=== PATIENT | male | born 1990 | race Two or more races ===

== ENCOUNTER 2024-07-18 20:26 | Emergency (ER) | payer BC, SELFPAY ==
[2024-07-18 20:31] VITALS: PULSE 86; RESP 20; O2SAT 97; BMI 35.9
[2024-07-18 20:43] VITALS: BP 145/77; PULSE 99; RESP 20; TEMP 36.9; O2SAT 98
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
[2024-07-18] MEDS: IBUPROFEN TAB 400 MG TABLET 800 MG PO (22:42)
[2024-07-18] MEDS: ACETAMINOPHEN w/COD 300-30 TABLET 2 TAB PO (22:42)
[2024-07-18 23:10] VITALS: BP 146/80; PULSE 90; RESP 18; TEMP 36.9; O2SAT 98
== END 2024-07-18 23:10 | disposition home or self-care (01) ==
PROVIDERS: Emergency Provider Emergency Medicine
DX: S52.501A Unspecified fracture of the lower end of right radius, initial encounter for closed fracture (principal); V43.52XA Car driver injured in collision with other type car in traffic accident, initial encounter; Y92.410 Unspecified street and highway as the place of occurrence of the external cause
CPT/HCPCS: 29126; 73090; 99283; A9270

== ENCOUNTER 2024-08-03 18:00 | Emergency (ER) | payer BC, SELFPAY ==
[2024-08-03 18:39] VITALS: BP 128/79; PULSE 106; RESP 18; TEMP 36.8; O2SAT 96; BMI 37.3
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
--- NOTE | 2024-08-03 19:00 | PC.NURSE ---
no answer in lobby when called for room in ed
--- NOTE | 2024-08-03 19:25 | PC.NURSE ---
CALLED 3 TIMES , NO ANSWER AT ER LOBBY OR OUTSIDE ER.
--- NOTE | 2024-08-03 19:25 | PC.NURSE ---
no answer in lobby when called for room in ed
== END 2024-08-03 19:27 | disposition left against medical advice (07) ==
LOC: SERX 19:28
PROVIDERS: Emergency Provider Emergency Medicine
DX: S62.101A Fracture of unspecified carpal bone, right wrist, initial encounter for closed fracture (principal); X58.XXXA Exposure to other specified factors, initial encounter; Z53.29 Procedure and treatment not carried out because of patient's decision for other reasons
CPT/HCPCS: 99281

== ENCOUNTER 2024-08-04 08:36 | Day surgery (SDC) | payer BC, SELFPAY ==
[2024-08-04] VITALS (8 sets, daily range): BP systolic 124–149; BP diastolic 73–82; PULSE 76–103; RESP 12–18; TEMP 36.3–37; O2SAT 94–98; BMI 36.9
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
[2024-08-04 09:12] LABS: Prothrombin Time 11.4 Seconds (9.0-12.2)
[2024-08-04 09:16] LABS: Alanine Aminotransferase 18 U/L (10-49); Albumin, Serum 4.6 gm/dL (3.5-5.0); Albumin/Globulin Ratio 1.6 (1.2-2.2); Alkaline Phosphatase 95 U/L (46-116); Anion Gap 7 (7-16); Aspartate Amino Transferase 13 U/L (0-34); BUN/Creatinine Ratio 16 Ratio (12-20); Bilirubin,Total 0.7 mg/dL (0.3-1.2); Blood Urea Nitrogen 13 mg/dL (9-23); Calcium 10.6 mg/dL (8.3-10.6); Calcium (Corrected) 10.6 mg/dL (8.5-10.1); Carbon Dioxide 26.9 mMol/L (20.0-31.0); Chloride 108 mMol/L (98-107); Creatinine (Component) 0.8 mg/dL (0.6-1.3); Estimated Creatinine Clearance 174.9 mL/min (>60); Globulin 2.9 gm/dL (2.3-3.5); Glucose 100 mg/dL (74-106); Osmolality,Calculated 283 (275-295); Potassium 4.4 mMol/L (3.4-5.1); Sodium 142 mMol/L (136-145); Total Protein 7.5 gm/dL (5.7-8.2); eGFR > 60 See Note
[2024-08-04 09:20] LABS: Basophils # (Auto) 0.1 Thou/mm3 (0.0-0.2); Basophils % (Auto) 1 % (0-2.5); Eosinophils # (Auto) 0.2 Thou/mm3 (0.0-0.5); Eosinophils % (Auto) 1 % (0-10); Hematocrit 39.9 % (41.0-53.0); Hemoglobin 13.5 g/dL (13.5-16.0); Immature Granulocytes % (Auto) 0 % (0-0); Immature Granulocytes Auto 0.05 Thou/mm3 (0.00-0.00); Lymphocytes # (Auto) 3.2 Thou/mm3 (1.0-4.8); Lymphocytes % (Auto) 27 % (10-50); Mean Corpuscular HGB Conc 33.8 g/dl (31.0-37.0); Mean Corpuscular Volume 92 fL (80-100); Monocytes # (Auto) 0.9 Thou/mm3 (0.0-0.8); Monocytes % (Auto) 7 % (0-12); Neutrophils # (Auto) 7.5 Thou/mm3 (1.8-7.7); Neutrophils % (Auto) 63 % (37-80); Nucleated Red Blood Cell % 0 /100 WBC (0); Platelet Count 320 Thou/mm3 (140-440); RDW Standard Deviation 41.2 fL (35.1-43.9); Red Blood Count 4.36 Miln/mm3 (4.50-5.90); White Blood Count 11.9 Thou/mm3 (3.8-10.6)
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
--- NOTE | 2024-08-04 17:06 | PC.NURSE ---
taken to or at this time.
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
--- NOTE | 2024-08-04 18:48 | SUR.PHASEI ---
pt received to [facility]. awake, alert and oriented. vss. breathing even and unlabored. dressing to right hand cdi. report from nurse doty and dr allen.
--- NOTE | 2024-08-04 19:38 | PD.ANESPROG ---
Documentation for date of: 08/04/24 ANESTHESIA NOTE: Patient had GETA and R supraclavicular nerve block for R radius ORIF earlier today. He did well intra-op and currently in PACU doing well, awake, calm, NAD, post op pain controlled. Stevo Mora MD Anesthesia Progress Note Progress Note Most recent Vital Signs: Last Vital Signs Temp 97.4 F 08/04/24 19:33 Pulse 99 08/04/24 19:33 Resp 18 08/04/24 19:33 BP 124/73 08/04/24 19:33 Pulse Ox 95 08/04/24 19:33 O2 Del Method Room Air 08/04/24 09:04 O2 Flow Rate 3 08/04/24 19:03
--- NOTE | 2024-08-04 19:48 | SUR.PHASEI ---
pt discharged with all belongings. vss breathing even and unlabored. dressing to right wrist cdi. instructions gone over with and patient. both verbalized understanding. signed by .
--- NOTE | 2024-08-11 14:08 | ESOP_ITS ---
Date of Procedure 08/04/24 Pre Op Diagnosis Displaced angulated impacted fracture of the right distal radius Post Op Diagnosis Same Procedure Open reduction internal fixation with 5 hole volar interlocking Synthes plate and screws Findings Patient had impacted fracture of the right distal radius. It was angulated. The volar tilt was absent. Procedure Description Patient was given general endotracheal anesthesia. Was satisfactory anesthesia achieved a tourniquet placed on right upper arm. Following that the part was thoroughly prepped and draped. After using Esmarch the tourniquet pressure was raised to 250 mmHg Intravenous antibiotics was given at the time of anesthesia A skin incision was made from the wrist crease extending proximally for about 3 to 4 inches. Deeper dissection was carried out. Plane was developed between brachioradialis muscle and flexor carpi radialis muscle. The median nerve was protected under flexor carpi radialis muscle and radial nerve and artery was protected on the brachioradialis muscle Deeper dissection carried out. The soft tissues including pronator quadratus muscle was reflected from the flexor aspect of the radius Fracture fragment was exposed. With the help of Wilbraham and curette the soft tissue impacted between the fracture fragment was removed. Following that with the help of periosteal elevator it was levered and reduced. Position checked under C arm in both AP and lateral and found to be extremely good Following that a 5 hole horizontal and 5 hole vertical interlocking plate was mounted. Was satisfactory position was achieved then with the help of K wire it was held in 1 particular position. Following that another drill hole was made in vertical shaft and appropriate size cortical screw was placed Following that 2 cortical screws were placed distally on the horizontal aspect of the plate. While tightening the uses screws the wrist was palmar flexed to a chieve the volar tilt Patient was checked under C arm and found to be good following that 1 more cortical screw was placed onto the vertical limb. Following that 3 more interlocking screw was placed distally after drilling and measuring it. Another cortical screw was placed on the vertical limb. Position was checked under C arm and found to be anatomical reduction And was irrigated with antibiotic solution every 4 to 5 minutes extra closure was done with the help of 2-0 Vicryl in an interrupted fashion. The skin was closed with a jesus About 10 mL of quarter percent Marcaine was injected at the skin incision site. After cleaning the wound with hydrogen peroxide solution a sterile dressing was applied. Short arm splint was applied and tourniquet pressure was released Patient tolerated procedure very well. Estimated blood loss 10 mL. Prognosis in the case is fair to good. Anesthesia GETA and other Pathology / specimen None Estimated Blood Loss 10 Surgeon Torrey Anderson MD Surgical Staff Operation Date: 08/04/24 12:15 Case Staff Anesthesiologist: Stevo Mora RNcordwood cutter: Deepti Morales
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
== END 2024-08-04 19:48 | disposition home or self-care (01) ==
LOC: SERX 09:14 → S2EX 17:59
PROVIDERS: Nurse Practitioner Primary Care; Emergency Provider Emergency Medicine; PCP Physician Assistant; Referring Provider Orthopaedic Surgery; Visit Provider Orthopaedic Surgery
PROC: (CPT 25607; principal; 2024-08-04 12:00)
DX: S52.571A Other intraarticular fracture of lower end of right radius, initial encounter for closed fracture (principal); V89.2XXA Person injured in unspecified motor-vehicle accident, traffic, initial encounter
CPT/HCPCS: 25607; 36415; 73100; 76000; 80053; 85025; 85610; 85730; 99285; A4217; A4649; C1713; J0690; J1100; J1580; J2250; J2270; J2371; J2704; J2765; J2795; J3010; J3490